=== PATIENT | female | born 1950 | race African-American/Black ===

== ENCOUNTER 2017-11-25 16:03 | Emergency (ER) | payer MEDICARE ==
--- OUTSIDE RECORDS SUMMARY | 2017-11-25 16:05 | XMS REPORT ---
:1950 [facility] Address [address] [place] [address] [address] Care Team Providers Name Role Phone NAS PASCUAL Primary Care Provider Unavailable Problems This patient has no known problems. Allergies, Adverse Reactions, Alerts This patient has no known allergies or adverse reactions. Medications This patient has no known medications. Encounters Start End Encounter Admission Attending Care Care Encounter Date/Time Date/Time Type Type Clinicians Facility Department ID 2017-04-20 2017-04-20 Outpatient C [facility] MED [id number] 07:21:00 07:21:00
--- NOTE | 2017-11-25 17:41 | RAD REPORT ---
EXAM DESCRIPTION: RAD - Hand Right 3 View - 11/25/2017 5:35 pm CLINICAL HISTORY: Trauma, hand pain COMPARISON: None. FINDINGS: Oblique fracture involves the shaft of the fourth metacarpal. No dislocation is seen.
[2017-11-25] MEDS ORDERED: IBUPROFEN 400 MG TAB ONE (17:50)
[2017-11-25] MEDS ORDERED: HYDROCODONE/APAP 5/325 MG TAB ONE (17:50)
--- NOTE | 2017-11-25 17:50 | ER ---
Nurse's Notes [facility] Name: Tuyet Maldonado Age: 67 yrs Sex: Female : 1950 Arrival Date: 11/25/2017 Time: 16:06 Bed 18 Private MD: Out, [facility] Diagnosis: Closed oblique, 4th metacarpal fracture Presentation: 11/25 16:25 Presenting complaint: Patient states: i hurt my R hand this morning about 9 am; i hj caught my husbands body while we were in the truck accidentally; it looks it swollen now;. Transition of care: patient was not received from another setting of care. Onset of symptoms was November 25, 2017. Care prior to arrival: None. 16:25 Method Of Arrival: Ambulatory 16:25 Acuity: ADOLFO 4 hj Triage Assessment: 16:32 General: Appears in no apparent distress. uncomfortable, Behavior is calm, cooperative, hj appropriate for age. Pain: Complains of pain in right hand. Musculoskeletal: Swelling. Historical: - Allergies: 16:32 Iodine; hj - Home Meds: 16:32 furosemide 20 mg Oral tab 1 tab once daily [Active]; folic acid 1 mg Oral tab 1 tab hj once daily [Active]; levothyroxine 125 mcg tab 1 tab once daily [Active]; potassium chloride 20 mEq Oral TbTQ 1 tab once daily [Active]; Plavix 75 mg Oral tab 1 tab once daily [Active]; omeprazole 40 mg Oral cpDR 1 cap once daily [Active]; pravastatin 40 mg oral tab 1 tab once daily [Active]; losartan 100 mg oral tab 1 tab once daily [Active]; isosorbide dinitrate 30 mg Oral tab 1 tab daily [Active]; oxybutynin chloride 5 mg Oral tr24 1 tab once daily [Active]; prednisone 5 mg Oral tab once daily [Active]; methotrexate sodium 2.5 mg Oral tab 1 tab weekly [Active]; Vitamin D Oral [Active]; hydrocodone-acetaminophen Oral [Active]; clonazepam 0.5 mg Oral tab 1 tab 3 times per day [Active]; - PMHx: 16:32 Lupus; heart disease; hj - PSHx: 16:32 Cholecystectomy; ear; ankle; Hysterectomy; hj - Immunization history:: Adult Immunizations up to date. Screenin:20 Abuse screen: Denies threats or abuse. Denies injuries from another. Nutritional aj1 screening: No deficits noted. Tuberculosis screening: No symptoms or risk factors identified. Fall Risk None identified. Assessment: 17:20 General: Appears in no apparent distress. uncomfortable, Behavior is calm, cooperative, aj1 appropriate for age. Pain: Complains of pain in right hand Pain does not radiate. Pain currently is 8 out of 10 on a pain scale. Neuro: Level of Consciousness is awake, alert, obeys commands, Oriented to person, place, time, situation, Speech is normal, Facial symmetry appears normal. Cardiovascular: Patient's skin is warm and dry. Respiratory: Airway is patent Respiratory effort is even, unlabored, Respiratory pattern is regular, symmetrical. GI: No signs and/or symptoms were reported involving the gastrointestinal system. : No signs and/or symptoms were reported regarding the genitourinary system. EENT: No signs and/or symptoms were reported regarding the EENT system. Derm: No signs and/or symptoms reported regarding the dermatologic system. Skin is pink, warm \T\ dry. normal. Musculoskeletal: Capillary refill < 3 seconds, in right fingers. Range of motion: limited in right hand Swelling present in right hand. 18:29 Reassessment: Patient appears in no apparent distress at this time. No changes from aj1 previously documented assessment. Patient and/or family updated on plan of care and expected duration. Pain level reassessed. Patient is alert, oriented x 3, equal unlabored respirations, skin warm/dry/pink. 19:11 Reassessment: PT D/C HOME AMBULATORY WITH FAMILY, DX WITH 4TH METACARPAL FX, TO F/U bp WITH ORTHO-HAND. Vital Signs: 16:33 BP 117 / 73; Pulse 82; Resp 18; Temp 98.4(TE); Pulse Ox 98% on R/A; Weight 109.77 kg; hj Height 5 ft. 1 in. (154.94 cm); Pain 8/10; 18:39 BP 121 / 73; Pulse 65; Resp 18; Pulse Ox 100% on R/A; aj1 16:33 Body Mass Index 45.73 (109.77 kg, 154.94 cm) ED Course: 16:06 Patient arrived in ED. mr 16:07 Out, [facility] is Private Physician. mr 16:21 [facility] snw 16:21 Jhony Pan MD is Attending Physician. snw 16:27 Triage completed. hj 16:33 Arm band placed on left wrist. hj 17:16 Nguyen Carvajal RN is Primary Nurse. aj1 17:20 Patient has correct armband on for positive identification. Placed in gown. Bed in low aj1 position. Call light in reach. 17:20 No provider procedures requiring assistance completed. aj1 17:33 X-ray completed. Portable x-ray completed in exam room. Patient tolerated procedure la2 well. 17:47 David Guajardo MD is Referral Physician. snw 18:29 Patient did not have IV access during this emergency room visit. aj1 19:08 Orthoglass splint: Ulnar gutter/Boxer splint applied on right forearm. Sling applied to mh5 right arm. hand / forearm (right ). 19:10 Orthoglass splint: Ulnar gutter/Boxer splint applied on right forearm. bp Administered Medications: 17:38 Not Given (Patient Refused): [place] 5 mg-325 mg 1 tabs PO once jl7 17:38 Not Given (Patient Refused): Motrin 400 mg PO once jl7 17:38 Drug: Tylenol 1000 mg Route: PO; jl7 18:40 Follow up: Response: No adverse reaction aj1 Outcome: 17:50 Discharge ordered by . snw 19:12 Patient left the ED. bp Signatures: Nguyen Carvajal, RN RN aj1 Candie Turner FNP-C WHEEL ALIGNER-Csnw Juana Holt Henry, RN RN Juana Dawson [facility] Eda Boothe RN RN 7 Yesica Espinoza [facility] Tamir Lambert RN RN bp Corrections: (The following items were deleted from the chart) 16:35 16:33 Pulse 82bpm; Resp 18bpm; Pulse Ox 100% RA; Temp 98.4F Temporal; 109.77 kg; Height hj 5 ft. 1 in.; BMI: 45.7; Pain 8/10; hj
--- NOTE | 2017-11-25 17:50 | EDPHYS ---
Physician Documentation [facility] Name: Tuyet Maldonado Age: 67 yrs Sex: Female : 1950 Arrival Date: 11/25/2017 Time: 16:06 Bed 18 Private MD: Out, [facility] ED Physician Jhony Pan HPI: 11/25 17:06 This 67 yrs old Black Female presents to ER via Ambulatory with complaints of Hand snw Injury. 17:06 The patient or guardian reports a contusion, decreased range of motion, injury, pain, snw swelling, tenderness. The complaints affect the right hand diffusely. Context: The problem was sustained outdoors, resulted from a direct blow, by a heavy object. Onset: The symptoms/episode began/occurred suddenly. Modifying factors: The symptoms are alleviated by holding still, the symptoms are aggravated by movement, dependent position. Severity of symptoms: At their worst the symptoms were moderate. The patient has not experienced similar symptoms in the past. The patient has not recently seen a physician. pt was behind her when he lost his balance, attempted to stop his fall and he landed against her closed fist.. Historical: - Allergies: 16:32 Iodine; hj - Home Meds: 16:32 furosemide 20 mg Oral tab 1 tab once daily [Active]; folic acid 1 mg Oral tab 1 tab hj once daily [Active]; levothyroxine 125 mcg tab 1 tab once daily [Active]; potassium chloride 20 mEq Oral TbTQ 1 tab once daily [Active]; Plavix 75 mg Oral tab 1 tab once daily [Active]; omeprazole 40 mg Oral cpDR 1 cap once daily [Active]; pravastatin 40 mg oral tab 1 tab once daily [Active]; losartan 100 mg oral tab 1 tab once daily [Active]; isosorbide dinitrate 30 mg Oral tab 1 tab daily [Active]; oxybutynin chloride 5 mg Oral tr24 1 tab once daily [Active]; prednisone 5 mg Oral tab once daily [Active]; methotrexate sodium 2.5 mg Oral tab 1 tab weekly [Active]; Vitamin D Oral [Active]; hydrocodone-acetaminophen Oral [Active]; clonazepam 0.5 mg Oral tab 1 tab 3 times per day [Active]; - PMHx: 16:32 Lupus; heart disease; hj - PSHx: 16:32 Cholecystectomy; ear; ankle; Hysterectomy; hj - Immunization history:: Adult Immunizations up to date. ROS: 17:06 Constitutional: Negative for fever, chills, and weight loss, Eyes: Negative for injury, snw pain, redness, and discharge, ENT: Negative for injury, pain, and discharge, Neck: Negative for injury, pain, and swelling, Cardiovascular: Negative for chest pain, palpitations, and edema, Respiratory: Negative for shortness of breath, cough, wheezing, and pleuritic chest pain, Abdomen/GI: Negative for abdominal pain, nausea, vomiting, diarrhea, and constipation, Back: Negative for injury and pain, : Negative for injury, bleeding, discharge, and swelling, Skin: Negative for injury, rash, and discoloration, Neuro: Negative for headache, weakness, numbness, tingling, and seizure, Psych: Negative for depression, anxiety, suicide ideation, homicidal ideation, and hallucinations. 17:06 MS/extremity: Positive for injury or acute deformity, decreased range of motion, pain, of the dorsum of right hand. Exam: 17:02 Constitutional: This is a well developed, well nourished patient who is awake, alert, snw and in no acute distress. Head/Face: Normocephalic, atraumatic. Eyes: Pupils equal round and reactive to light, extra-ocular motions intact. Lids and lashes normal. Conjunctiva and sclera are non-icteric and not injected. Cornea within normal limits. Periorbital areas with no swelling, redness, or edema. ENT: Nares patent. No nasal discharge, no septal abnormalities noted. Tympanic membranes are normal and external auditory canals are clear. Oropharynx with no redness, swelling, or masses, exudates, or evidence of obstruction, uvula midline. Mucous membranes moist. Neck: Trachea midline, no thyromegaly or masses palpated, and no cervical lymphadenopathy. Supple, full range of motion without nuchal rigidity, or vertebral point tenderness. No Meningismus. Chest/axilla: Normal chest wall appearance and motion. Nontender with no deformity. No lesions are appreciated. Cardiovascular: Regular rate and rhythm with a normal S1 and S2. No gallops, murmurs, or rubs. Normal PMI, no JVD. No pulse deficits. Respiratory: Lungs have equal breath sounds bilaterally, clear to auscultation and percussion. No rales, rhonchi or wheezes noted. No increased work of breathing, no retractions or nasal flaring. Abdomen/GI: Soft, non-tender, with normal bowel sounds. No distension or tympany. No guarding or rebound. No evidence of tenderness throughout. Back: No spinal tenderness. No costovertebral tenderness. Full range of motion. Skin: Warm, dry with normal turgor. Normal color with no rashes, no lesions, and no evidence of cellulitis. Neuro: Awake and alert, GCS 15, oriented to person, place, time, and situation. Cranial nerves II-XII grossly intact. Motor strength 5/5 in all extremities. Sensory grossly intact. Cerebellar exam normal. Normal gait. Psych: Awake, alert, with orientation to person, place and time. Behavior, mood, and affect are within normal limits. 17:02 Musculoskeletal/extremity: ROM: limited active range of motion due to pain, limited passive range of motion due to pain, Circulation is intact in all extremities. Sensation intact. Compartment Syndrome exam of affected extremity: is normal. Right 4th metacarpal with depressed appearance with hematoma overlying area. Vital Signs: 16:33 BP 117 / 73; Pulse 82; Resp 18; Temp 98.4(TE); Pulse Ox 98% on R/A; Weight 109.77 kg; hj Height 5 ft. 1 in. (154.94 cm); Pain 8/10; 18:39 BP 121 / 73; Pulse 65; Resp 18; Pulse Ox 100% on R/A; aj1 16:33 Body Mass Index 45.73 (109.77 kg, 154.94 cm) MDM: 16:22 Patient medically screened. snw 17:54 Data reviewed: vital signs, nurses notes. Data interpreted: Pulse oximetry: on room air snw is 98 %. Interpretation: normal. Counseling: I had a detailed discussion with the patient and/or guardian regarding: the historical points, exam findings, and any diagnostic results supporting the discharge/admit diagnosis, radiology results, the need for outpatient follow up, to return to the emergency department if symptoms worsen or persist or if there are any questions or concerns that arise at home. Special discussion: Based on the history and exam findings, there is no indication for further emergent testing or inpatient evaluation. I discussed with the patient/guardian the need to see the orthopedic surgeon for further evaluation of the symptoms. 11/25 16:34 Order name: Hand Right 3 View XRAY hj 11/25 17:41 Order name: RAD; Complete Time: 17:46 EDMS 11/25 17:47 Order name: Ulnar Gutter splint; Complete Time: 19:10 snw Administered Medications: 17:38 Not Given (Patient Refused): [place] 5 mg-325 mg 1 tabs PO once jl7 17:38 Not Given (Patient Refused): Motrin 400 mg PO once jl7 17:38 Drug: Tylenol 1000 mg Route: PO; jl7 18:40 Follow up: Response: No adverse reaction aj1 Disposition: 11/26 10:47 Co-signature as Attending Physician, Jhony Pan MD I agree with the assessment and joshua plan of care. Disposition: 11/25/17 17:50 Discharged to Home. Impression: Closed oblique, 4th metacarpal fracture. - Condition is Stable. - Discharge Instructions: Elastic Bandage and RICE, Boxer's Fracture, Cast or Splint Care. - Prescriptions for Tylenol- Codeine #3 300-30 mg Oral Tablet - take 2 tablets by ORAL route every 6 hours As needed; 20 tablet. - Medication Reconciliation Form, Thank You Letter, Antibiotic Education, Prescription Opioid Use form. - Follow up: Private Physician; When: Tomorrow; Reason: Recheck today's complaints, Continuance of care, Re-evaluation by your physician. Follow up: Emergency Department; When: As needed; Reason: Worsening of condition. Follow up: David Guajardo MD; When: 2 - 3 days; Reason: Recheck today's complaints, Continuance of care. Signatures: Dispatcher [employer] EDNguyen Alexis, RN RN aj1 Jhony Pan MD MD cha Therrien, Shelly, COMMUNICATIONS PROFESSOR-C COMMUNICATIONS PROFESSOR-Csnw Juan Muller, RN BOUBACAR hj Eda Boothe RN RN jl7 Tamir Lambert RN RN bp
[2017-11-25] MEDS ORDERED: ACETAMINOPHEN 500 MG TAB ONE (17:55)
[2017-11-25 20:01] VITALS: TEMP 98.4
[2017-11-25 20:03] VITALS: BP 121/73; O2SAT 100
== END 2017-11-25 19:12 | disposition home or self-care (01) ==
LOC: ER 16:03
PROC: 2W3CX1Z Immobilization of Right Lower Arm using Splint (ICD-10-PCS; principal; 2017-11-25)
DX: S62.304A Unspecified fracture of fourth metacarpal bone, right hand, initial encounter for closed fracture (principal); W50.0XXA Accidental hit or strike by another person, initial encounter; Y93.89 Activity, other specified; Y92.89 Other specified places as the place of occurrence of the external cause; Z91.048 Other nonmedicinal substance allergy status; Z79.01 Long term (current) use of anticoagulants; I51.9 Heart disease, unspecified
CPT/HCPCS: 99283

== ENCOUNTER 2019-04-30 23:41 | Emergency (ER) | payer MEDICARE ==
--- OUTSIDE RECORDS SUMMARY | 2019-04-30 23:44 | XMS REPORT ---
:1950 [facility] Address [address] [place] [address] [address] Care Team Providers Name Role Phone NAS PASCUAL Primary Care Provider Unavailable Problems This patient has no known problems. Allergies, Adverse Reactions, Alerts This patient has no known allergies or adverse reactions. Medications This patient has no known medications. Encounters Start End Encounter Admission Attending Care Care Encounter Date/Time Date/Time Type Type Clinicians Facility Department ID 2017-04-20 2017-04-20 Outpatient C [facility] MED [id number] 07:21:00 07:21:00 2017-04-20 2017-04-20 Outpatient [facility] [id number] 07:13:00 07:13:00
[2019-05-01] MEDS ORDERED: ONDANSETRON 4 MG/2 ML VIAL ONE (00:34)
[2019-05-01] MEDS ORDERED: MORPHINE 4 MG/ML SYR ONE (00:34)
[2019-05-01 00:35] LABS: Hematocrit 30.8 % (36.0-45.0); Lymphocytes % 45.5 % (15.3-44.8); MPV 9.2 fL (7.6-11.3); RBC Red Blood Cell Count 3.38 M/uL (3.86-4.86)
[2019-05-01 00:49] LABS: Potassium 3.7 mmol/L (3.5-5.1)
[2019-05-01] MEDS ORDERED: CODEINE 30MG/APAP 300MG TAB ONE (00:51)
--- NOTE | 2019-05-01 02:06 | ER ---
Nurse's Notes [facility] Name: Tuyet Maldonado Age: 68 yrs Sex: Female : 1950 Arrival Date: 04/30/2019 Time: 23:47 Bed 15 Private MD: Diagnosis: Chronic pain left lower leg and right axilla Presentation: 04/30 23:58 Presenting complaint: Patient states: Reports pain in left foot since last August, ea states "the pain is just getting worse and worse and going up my left leg". Transition of care: patient was not received from another setting of care. Onset of symptoms was April 30, 2019. Risk Assessment: Do you want to hurt yourself or someone else? Patient reports no desire to harm self or others. Initial Sepsis Screen: Does the patient meet any 2 criteria? No. Patient's initial sepsis screen is negative. Does the patient have a suspected source of infection? No. Patient's initial sepsis screen is negative. Care prior to arrival: None. 23:58 Method Of Arrival: Wheelchair ea 23:58 Acuity: ADOLFO 3 ea Triage Assessment: 05/01 00:00 General: Appears in no apparent distress. Behavior is calm, cooperative, appropriate ea for age. Pain: Complains of pain in left leg. Historical: - Allergies: 00:01 Iodine; ea - PMHx: 00:01 Lupus; heart disease; ea - PSHx: 00:01 Cholecystectomy; ear; Hysterectomy; ankle; ea - Immunization history:: Adult Immunizations up to date. - Social history:: Smoking status: Patient/guardian denies using tobacco. - Ebola Screening: : No symptoms or risks identified at this time. Screenin/21 23:59 Abuse screen: Denies threats or abuse. Nutritional screening: No deficits noted. ea Tuberculosis screening: No symptoms or risk factors identified. Fall Risk None identified. Assessment: 05/01 00:00 General: Appears in no apparent distress. uncomfortable, Behavior is calm, cooperative, rr5 appropriate for age. 00:00 Pain: Complains of pain in left leg and right armpit Pain does not radiate. Pain rr5 currently is 8 out of 10 on a pain scale. Quality of pain is described as aching, Pain began gradually, Is intermittent. Neuro: Level of Consciousness is awake, alert, obeys commands, Oriented to person, place, time, situation, Appropriate for age. Cardiovascular: Capillary refill < 3 seconds Patient's skin is warm and dry. Respiratory: Airway is patent Respiratory effort is even, unlabored, Respiratory pattern is regular, symmetrical. GI: No signs and/or symptoms were reported involving the gastrointestinal system. : No signs and/or symptoms were reported regarding the genitourinary system. EENT: No signs and/or symptoms were reported regarding the EENT system. Derm: Skin is intact, Skin temperature is warm. Musculoskeletal: Circulation, motion, and sensation intact. Capillary refill < 3 seconds, Swelling present in left leg Reports pain in left leg and right armpit. 01:15 Reassessment: Patient appears in no apparent distress at this time. Patient is alert, rr5 oriented x 3, equal unlabored respirations, skin warm/dry/pink. chatting with her artist relationship manager. no complaints made. 02:20 Reassessment: Patient appears in no apparent distress at this time. Patient is alert, rr5 oriented x 3, equal unlabored respirations, skin warm/dry/pink. discharge instruction given and explained without complaints made. Patient states feeling better. Patient states symptoms have improved. Vital Signs: 04/30 23:58 BP 144 / 71; Pulse 84; Resp 18; Temp 97.5; Pulse Ox 100% ; Weight 109.77 kg; Height 5 ea ft. 1 in. (154.94 cm); Pain 7/10; 05/01 01:00 BP 131 / 70; Pulse 80; Resp 17; Pulse Ox 99% on R/A; rr5 02:15 BP 123 / 84; Pulse 80; Resp 17; Pulse Ox 99% ; Pain 6/10; rr5 04/30 23:58 Body Mass Index 45.73 (109.77 kg, 154.94 cm) ea ED Course: 04/30 23:47 Patient arrived in ED. ag3 23:53 Iggy Deras RN is Primary Nurse. rr5 23:58 Triage completed. ea 23:59 Patient has correct armband on for positive identification. Bed in low position. Call ea light in reach. 05/01 00:00 Patient placed in an exam room, on a stretcher, on pulse oximetry. ea 00:04 Benji Mendoza MD is Attending Physician. pkl 00:25 Inserted saline lock: 20 gauge in right antecubital area, using aseptic technique. rr5 Blood collected. 01:58 X-ray completed. Portable x-ray completed in exam room. Patient tolerated procedure kw well. 02:08 Tib Fib Left XRAY In Process Unspecified. EDMS 02:20 No provider procedures requiring assistance completed. IV discontinued, intact, rr5 bleeding controlled, No redness/swelling at site. Pressure dressing applied. 02:30 Primary Nurse role handed off by Iggy Deras, RN khushbu Administered Medications: 01:00 Drug: Tylenol #3 (300 mg-30 mg) 1 tablet {Note: rass 0.} Route: PO; rr5 02:00 Follow up: Response: No adverse reaction; RASS: Alert and Calm (0) rr5 01:27 Not Given (Other Intervention Used; patient refused ): morphine 4 mg IVP once; RASS on rr5 ADMIN: Combtv4, Very Agttd3, Agttd2, Rstlss1, AlertClm0, Drwsy-1, Lt Sdtn-2, Mod Sdtn-3, Dp Sdtn-4, UnArsble-5 01:27 Not Given (Other Intervention Used): Zofran 4 mg IVP once; over 2 minutes rr5 Outcome: 02:05 Discharge ordered by . pkjean paul 02:20 Discharged to home via wheelchair, with family. rr5 02:20 Condition: stable 02:20 Discharge instructions given to patient, family, Instructed on discharge instructions, follow up and referral plans. medication usage, Demonstrated understanding of instructions, follow-up care, medications, Prescriptions given X 1. 02:21 Patient left the ED. rr5 02:33 Patient left the ED. rr5 Signatures: Dispatcher [employer] EDMS Benji Mendoza MD MD pkl Chretien, Felicia RN Crissy Grijalva Elena, RN RN ea Gomez, Alice [facility] Iggy Deras, BOUBACAR RN rr5
--- NOTE | 2019-05-01 02:07 | EDPHYS ---
Physician Documentation [facility] Name: Tuyet Maldonado Age: 68 yrs Sex: Female : 1950 Arrival Date: 04/30/2019 Time: 23:47 Bed 15 Private MD: ED Physician Benji Mendoza HPI: 05/01 01:07 This 68 yrs old Black Female presents to ER via Wheelchair with complaints of Leg Pain. pkl 01:07 The patient presents with pain, that is acute. The complaints affect the left lower pkl leg. Onset: The symptoms/episode began/occurred 8 month(s) ago. Historical: - Allergies: 00:01 Iodine; ea - PMHx: 00:01 Lupus; heart disease; ea - PSHx: 00:01 Cholecystectomy; ear; Hysterectomy; ankle; ea - Immunization history:: Adult Immunizations up to date. - Social history:: Smoking status: Patient/guardian denies using tobacco. - Ebola Screening: : No symptoms or risks identified at this time. ROS: 01:07 Eyes: Negative for injury, pain, redness, and discharge, ENT: Negative for injury, pkl pain, and discharge, Neck: Negative for injury, pain, and swelling, Cardiovascular: Negative for chest pain, palpitations, and edema, Respiratory: Negative for shortness of breath, cough, wheezing, and pleuritic chest pain, Abdomen/GI: Negative for abdominal pain, nausea, vomiting, diarrhea, and constipation, Back: Negative for injury and pain, : Negative for injury, bleeding, discharge, and swelling, Neuro: Negative for headache, weakness, numbness, tingling, and seizure. 01:07 MS/extremity: Positive for erythema, pain, tenderness, warmth, of the left lower leg. 01:07 Skin: Positive for erythema, of the left lowerr leg. 01:07 Neuro: Negative for altered mental status. Exam: 01:07 Head/Face: Normocephalic, atraumatic. Eyes: Pupils equal round and reactive to light, pkl extra-ocular motions intact. Lids and lashes normal. Conjunctiva and sclera are non-icteric and not injected. Cornea within normal limits. Periorbital areas with no swelling, redness, or edema. ENT: Nares patent. No nasal discharge, no septal abnormalities noted. Tympanic membranes are normal and external auditory canals are clear. Oropharynx with no redness, swelling, or masses, exudates, or evidence of obstruction, uvula midline. Mucous membranes moist. Neck: Trachea midline, no thyromegaly or masses palpated, and no cervical lymphadenopathy. Supple, full range of motion without nuchal rigidity, or vertebral point tenderness. No Meningismus. Chest/axilla: Normal chest wall appearance and motion. Nontender with no deformity. No lesions are appreciated. Cardiovascular: Regular rate and rhythm with a normal S1 and S2. No gallops, murmurs, or rubs. Normal PMI, no JVD. No pulse deficits. Respiratory: Lungs have equal breath sounds bilaterally, clear to auscultation and percussion. No rales, rhonchi or wheezes noted. No increased work of breathing, no retractions or nasal flaring. Abdomen/GI: Soft, non-tender, with normal bowel sounds. No distension or tympany. No guarding or rebound. No evidence of tenderness throughout. Back: No spinal tenderness. No costovertebral tenderness. Full range of motion. Neuro: Awake and alert, GCS 15, oriented to person, place, time, and situation. Cranial nerves II-XII grossly intact. Motor strength 5/5 in all extremities. Sensory grossly intact. Cerebellar exam normal. Normal gait. 01:07 Musculoskeletal/extremity: Extremities: grossly normal except: noted in the left lower leg: erythema, pain, tenderness. Vital Signs: 04/30 23:58 BP 144 / 71; Pulse 84; Resp 18; Temp 97.5; Pulse Ox 100% ; Weight 109.77 kg; Height 5 ea ft. 1 in. (154.94 cm); Pain 7/10; 05/01 01:00 BP 131 / 70; Pulse 80; Resp 17; Pulse Ox 99% on R/A; rr5 02:15 BP 123 / 84; Pulse 80; Resp 17; Pulse Ox 99% ; Pain 6/10; rr5 04/30 23:58 Body Mass Index 45.73 (109.77 kg, 154.94 cm) ea MDM: 00:04 Patient medically screened. pkl 01:56 Data reviewed: vital signs, nurses notes, lab test result(s), radiologic studies, plain pkl films. ED course: Patient seen by Dr. Mcnair ( Hospitalist ). Patient does not meet criteria for admission. Discussed lab. and imaging studies with patient. Patient said she has appt. with her PCP in the morning. Advised patient to keep appt. Patient understood instruction. 05/01 00:15 Order name: CBC with Diff pkl 05/01 00:15 Order name: Chem 7 pkl 05/01 00:15 Order name: D-Dimer pkl 05/01 00:15 Order name: Sed Rate pkl 05/01 00:48 Order name: CBC with Automated Diff EDMS 05/01 00:49 Order name: D-Dimer EDMS 05/01 00:16 Order name: Saline Lock; Complete Time: 00:24 pkl 05/01 00:50 Order name: Basic Metabolic Panel EDMS 05/01 01:04 Order name: Sedimentation Rate, [place] EDMS 05/01 01:06 Order name: Tib Fib Left XRAY pkl Administered Medications: 01:00 Drug: Tylenol #3 (300 mg-30 mg) 1 tablet {Note: rass 0.} Route: PO; rr5 02:00 Follow up: Response: No adverse reaction; RASS: Alert and Calm (0) rr5 01:27 Not Given (Other Intervention Used; patient refused ): morphine 4 mg IVP once; RASS on rr5 ADMIN: Combtv4, Very Agttd3, Agttd2, Rstlss1, AlertClm0, Drwsy-1, Lt Sdtn-2, Mod Sdtn-3, Dp Sdtn-4, UnArsble-5 01:27 Not Given (Other Intervention Used): Zofran 4 mg IVP once; over 2 minutes rr5 Disposition: 05/01/19 02:05 Discharged to Home. Impression: Chronic pain left lower leg and right axilla. - Condition is Stable. - Prescriptions for Tylenol- Codeine #3 300-30 mg Oral Tablet - take 1 tablet by ORAL route every 8 hours As needed; 20 tablet. - Medication Reconciliation Form, Thank You Letter, Antibiotic Education, Prescription Opioid Use form. - Follow up: Private Physician; When: Tomorrow; Reason: Re-evaluation by your physician. - Problem is new. - Symptoms have improved. Signatures: Dispatcher [facility] Benji Mendoza MD MD pkl Brady, Jennifer, RN RN ea Deras, Iggy, RN RN rr5 Corrections: (The following items were deleted from the chart) 02:21 02:05 05/01/2019 02:05 Discharged to Home. Impression: Chronic pain right lower leg and rr5 right axilla. Possible lymphadenitis. Condition is Stable. Forms are Medication Reconciliation Form, Thank You Letter, Antibiotic Education, Prescription Opioid Use. Follow up: Private Physician; When: Tomorrow; Reason: Re-evaluation by your physician. Problem is new. Symptoms have improved. pkl 02:33 02:21 05/01/2019 02:05 Discharged to Home. Impression: Chronic pain right lower leg and pkl right axilla. Possible lymphadenitis. Condition is Stable. Prescriptions for Tylenol-Codeine #3 300-30 mg Oral Tablet - take 1 tablet by ORAL route every 8 hours As needed; 20 tablet. and Forms are Medication Reconciliation Form, Thank You Letter, Antibiotic Education, Prescription Opioid Use. Follow up: Private Physician; When: Tomorrow; Reason: Re-evaluation by your physician. Problem is new. Symptoms have improved. rr5 02:33 02:33 05/01/2019 02:05 Discharged to Home. Impression: Chronic pain left lower leg and rr5 right axilla. Condition is Stable. Prescriptions for Tylenol-Codeine #3 300-30 mg Oral Tablet - take 1 tablet by ORAL route every 8 hours As needed; 20 tablet. and Forms are Medication Reconciliation Form, Thank You Letter, Antibiotic Education, Prescription Opioid Use. Follow up: Private Physician; When: Tomorrow; Reason: Re-evaluation by your physician. Problem is new. Symptoms have improved. pkl
--- NOTE | 2019-05-01 02:34 | P.CNS ---
Date of Consult: 05/01/19 Reason for Consult: Left leg pain Requesting Physician: Benji Mendoza Chief Complaint: Left leg pain x 8 months History of Present Illness: 68-year-old woman with a history of rheumatoid arthritis on monoclonal antibody therapy presented to the ED with a complaint of left lower extremity pain, swelling and redness which has been present for 8 months. She also has similar pain in the right axilla area of the same duration. Patient reports taking several antibiotics without improvement. She recently completed 4 different types of antibiotics a couple of months ago. She denies any fever or chills. She reports completing a venous Doppler of the left lower extremity about 1 month ago but does not know the result of the test. Here in the ED, patient has no leukocytosis. She is afebrile. Allergies iodine [Iodine] Allergy (Severe, Verified 03/14/12 17:31) Shortness of breath Home Medications: Albuterol 2 puff IH Q4HP PRN 03/15/12 Estrogens,Conjugated [Premarin] 1.25 mg PO DAILY 03/15/12 Fluticasone/Salmeterol [Advair 100/50 Diskus*] 1 puff IH BID 03/15/12 Hydrochlorothiazide 50 mg PO DAILY 03/15/12 Tolterodine Tartrate [Detrol] 1 mg PO BID 03/15/12 Unitroid 100 mcg PO DAILY 03/15/12 Hydrocodone Bit/Acetaminophen [Vicodin Es 7.5-750 mg Tablet] 1 each PO Q4HP PRN #40 tablet 03/16/12 - Past Medical/Surgical History Diabetic: No -: Rheumatoid arthritis - Social History Smoking Status: Never smoker Alcohol use: Yes CD- Drugs: No Caffeine use: Yes Review of Systems Other: General: No fever, no malaise, no unintentional weight loss. Eyes: No eye discharge, Respiratory: No cough, no shortness of breath. CVS: No chest pain, no palpitation, no lightheadedness. GI: No abdominal pain, no nausea no vomit, no constipation, no diarrhea. Genitourinary: No dysuria, no urinary frequency, no incontinence, no hematuria. Musculoskeletal: No gait instability. Neurology: No headache, no asymmetric, weakness, no problem with swallowing. Except as documented, all other systems reviewed and negative. Physical Examination General: Alert, In no apparent distress, Oriented x3 HEENT: Atraumatic, Normocephalic, PERRLA, Mucous membr. moist/pink, EOMI Neck: Supple, 2+ carotid pulse no bruit, JVD not distended Respiratory: Clear to auscultation bilaterally, Normal air movement Cardiovascular: Normal pulses, Regular rate/rhythm, Normal S1 S2, No murmurs Capillary refill: <2 Seconds Gastrointestinal: Normal bowel sounds, Soft and benign, Non-distended, No tenderness Musculoskeletal: Swelling (Left lower extremity from the foot to the distal 3rd of the leg.), Other (Left lower extremity with erythema and tenderness from the foot to the distal 3rd of the leg) Integumentary: Erythema (Of the lower extremity.), Other (Streak of tenderness in the right axilla.) Lymphatics: No axilla or inguinal lymphadenopathy Laboratory Data (last 24 hrs) 05/01/19 00:25: Sodium 143, Potassium 3.7, BUN 16, Creatinine 1.01, Glucose 164 H 05/01/19 00:25: WBC 4.5, Hgb 10.0 L, Hct 30.8 L, Plt Count 218 - Problems (1) Chronic leg pain Status: Acute Qualifiers: Laterality: left Qualified Code(s): M79.605 - Pain in left leg; G89.29 - Other chronic pain Conclusions/Impression: Chronic leg pain: Could be secondary to lymphedema versus lymphadenitis. Benefit from hospitalization for treatment with IV antibiotics is very marginal if any. Patient has already completed several bouts of antibiotics without improvement. Patient denies any changes over the past 8 months. I would recommend follow up with her primary care physician as outpatient for further evaluation. Time Spent Managing Pts care (In Minutes): 45
[2019-05-01 02:40] VITALS: TEMP 97.5
[2019-05-01 02:41] VITALS: O2SAT 99
[2019-05-01 02:43] VITALS: BP 123/84
--- NOTE | 2019-05-01 10:19 | RAD REPORT ---
EXAM DESCRIPTION: RAD - Tib Fib Left - 05/01/2019 2:01 am CLINICAL HISTORY: Nontraumatic left leg pain COMPARISON: None. FINDINGS: No fracture is identified. There is no dislocation or periosteal reaction noted. No acute or destructive bone process seen. Patient has degenerative change in the knee joint. Bone screws in p lace in the fibula at the ankle joint from remote fracture repair. There is a fragment of a bone scre w remaining from prior medial malleolus fracture repair. Degenerative change at the ankle joint is mi nimal. No foreign body in the soft tissues. Mild edema changes are evident in the subcutaneous fatty tissues . Baseline for the patient is unknown. IMPRESSION: Knee joint degenerative change and ankle joint postsurgical change. No acute bone findin g. Edema in the subcutaneous fat of the leg with no baseline for comparison. No air or foreign body in t he soft tissues.
== END 2019-05-01 02:33 | disposition home or self-care (01) ==
LOC: ER 23:41
DX: G89.29 Other chronic pain (principal); I51.9 Heart disease, unspecified; Z91.048 Other nonmedicinal substance allergy status
CPT/HCPCS: 36415; 80048; 85025; 85379; 85652; 99284; J2405

== ENCOUNTER 2023-05-02 06:08 | Day surgery (SDC) | payer MEDICARE ==
[2023-04-30 15:45] LABS: Absolute Lymphocytes (CBC) 2.6 K/uL (0.7-4.9); Hematocrit 29.4 % (36.0-45.0); Lymphocytes % 39.4 % (15.3-44.8); MCV 79.4 fL (80-100); MPV 8.8 fL (7.6-11.3); Platelets 279 thou/uL (152-406)
--- NOTE | 2023-04-30 15:50 | RAD REPORT ---
EXAM DESCRIPTION: Sukhdeep Busch (2 Views)04/30/2023 3:43 pm CLINICAL HISTORY: Preop. Hypertension COMPARISON: 2019 FINDINGS: The lungs appear clear of acute infiltrate. The heart is normal size IMPRESSION: No acute abnormalities displayed
[2023-04-30 15:59] LABS: Potassium 3.9 mEq/L (3.5-5.1)
--- NOTE | 2023-05-01 15:52 | EKG ---
Test Date: 2023-04-30 Test Time: 15:20:27 Floral Designer: SELINA MEASUREMENT RESULTS: Intervals: Rate: 83 OR: 166 QRSD: 80 QT: 374 QTc: 439 [place]: P: 73 OR: 166 QRS: 34 T: 38 INTERPRETIVE STATEMENTS: Normal sinus rhythm Normal ECG Compared to ECG 03/14/2012 09:58:52 No significant changes Electronically Signed On 05-01-23 15:51:35 CDT by Boo Lind
[2023-05-02] MEDS ORDERED: Ringers Lactate 1,000 ML IV ONE (06:33)
[2023-05-02] MEDS: CEFAZOLIN SODIUM 1 GM/VIAL ONE ×2 (07:11→08:12)
[2023-05-02] MEDS ORDERED: FENTANYL CITR 100 MCG/2 ML ONE (07:17)
[2023-05-02] MEDS ORDERED: KETOROLAC 30 MG/ML INJ ONE (07:18)
[2023-05-02] MEDS ORDERED: LIDOCAINE 2% MPF 5 ML VIAL ONE (07:18)
[2023-05-02] MEDS ORDERED: propofoL 200 MG/20 ML VIAL IV ONE (07:18)
[2023-05-02] MEDS ORDERED: MIDAZOLAM HCL 2 MG/2 ML INJ ONE (07:19)
[2023-05-02] MEDS ORDERED: ONDANSETRON 4 MG/2 ML VIAL ONE (07:21)
--- NOTE | 2023-05-02 08:23 | P.BOP ---
Preoperative diagnosis: right facial tender mass 3x3cm Postoperative diagnosis: same Primary procedure: Excisional biopsy of right facial tender subq mass 2.1 x 2cm Estimated blood loss: <5cc Specimen: mass Findings: mass Anesthesia: General Complications: None Transferred to: Recovery Room Condition: Good
[2023-05-02] MEDS ORDERED: EPHEDRINE SULF 50 MG/ML VIAL ONE (08:25)
[2023-05-02] MEDS ORDERED: Phenylephrine HCl 10 MG/ML 1 ML VIAL ONE (08:36)
[2023-05-02 09:03] VITALS: O2SAT 99
[2023-05-02 10:18] VITALS: BP 112/60; TEMP 97
--- NOTE | 2023-05-02 19:06 | OP ---
Date of Procedure: 05/02/2023 Surgeon: Juan Dawson MD Diagnosis: Right facial tender subcutaneous mass, 3 x 3 cm. Postoperative Diagnosis: Right facial tender subcutaneous mass, 3 x 3 cm. Procedure: Excisional biopsy of right facial tender subcu mass about 2.1 x 2 cm. Estimated Blood Loss: Less than 5 cc. Specimen: Mass Anesthesia: General plus local. Complications: None. Indication: This is the case of a 72-year-old patient who comes to us with a tender facial mass. Gi stoney pain and discomfort, she wants that excised. It was a little bit bigger when she came to my offi ce, now slightly smaller because the swelling from the inflammatory process is coming down a bit, but the mass is still there. She wants that excised. The benefits, alternatives, and risks of excision were fully explained, which include, but not limited to infection, bleeding, damage to adjacent stru ctures, anesthesia complications, scars, nonhealing wound, MA, and even . She also had a chance of recurrence. She understood, signed a consent. Area of concern was marked by me and the patient in the holding room. Description Of Procedure: Patient was brought to the operating room, placed in supine position. Ane sthesia was done without complication. Right facial area was prepped and draped in usual sterile fas hion. A time-out was called. Local anesthesia was applied followed by a wedge incision of the skin. Incision was carried down to deep subcutaneous tissue where we have this mass that was removed with the help of blunt dissection. The mass was removed in 1 unit. No pus seen. Area was irrigated and then we proceeded to close this with 3-0 chromic, subcutaneous tissue, and 3-0 chromic subcuticular with Steri-Strips on top. Sponge count and instrument counts were correct. Patient tolerated the pr ocedure well. Patient was sent to recovery in stable condition. ARTIS/MODL Voice ID: [id number] Report ID: [id number]
--- NOTE | 2023-05-03 04:34 | DS ---
Date of Discharge: 05/02/2023 Diagnosis: Right facial tender subcu mass. Procedure: Excisional biopsy of right facial tender subcutaneous mass. Disposition: Home. Activity: As tolerated. No heavy lifting. Followup: In my office in 1 week. Call for appointment at [phone]. Plan: Keep area dry for 48 hours and then may shower. Keep Steri-Strips intact. For medications, s ee orders. ARTIS/DANYELL Voice ID: [id number] Report ID: [id number]
== END 2023-05-02 10:00 | disposition home or self-care (01) ==
LOC: OR 06:08
PROVIDERS: ATTEND Surgery
PROC: 0JB10ZZ Excision of Face Subcutaneous Tissue and Fascia, Open Approach (ICD-10-PCS; principal; 2023-05-02 07:30)
DX: L72.0 Epidermal cyst (principal)
CPT/HCPCS: 93005; 85025; 80048; 36415; 88305; 71046; 11443; J2704; J2001; J2250; J3010; J2405; J7120; J0690; 88304; J2371

== ENCOUNTER 2024-01-14 17:28 | Inpatient (IN) | payer MEDICARE ==
[2024-01-14 18:13] LABS: Absolute Lymphocytes (CBC) 2.6 K/uL (0.7-4.9); Absolute Monocytes 0.9 K/uL (0.1-1.3); Absolute Neutrophil 4.2 K/uL (1.8-8.0); Basophils % 0.7 % (0-1.3); Hematocrit 23.2 % (36.0-45.0); Hemoglobin 6.9 g/dL (12.0-15.0); Lymphocytes % 32.5 % (15.3-44.8); MCH 19.3 pg (27.0-35.0); MCHC 29.9 g/dL (32.0-36.0); MCV 64.5 fL (80-100); MPV 7.8 fL (7.6-11.3); Monocytes % 10.7 % (3.3-12.3); Neutrophils % 52.1 % (41.7-73.7); Platelets 330 thou/uL (152-406); RBC Red Blood Cell Count 3.59 M/uL (3.86-4.86); Red Cell Distribution Width 19.6 % (12.1-15.2)
[2024-01-14 18:14] LABS: Absolute Basophils 0.1 K/uL (0-0.5); Absolute Eosinophils 0.3 K/uL (0-0.5)
[2024-01-14 18:30] LABS: Albumin 3.7 g/dL (3.4-5.0); Albumin/Globulin Ratio 0.9 (1.1-1.8); Anion Gap 3.6 mEq/L (5.0-15.0); Bilirubin Total 0.4 mg/dL (0.2-1.0); Potassium 3.6 mEq/L (3.5-5.1); Protein, Total 7.7 g/dL (6.4-8.2)
--- NOTE | 2024-01-14 18:40 | RAD REPORT ---
EXAM DESCRIPTION: RAD - Chest Single View - 01/14/2024 6:10 pm CLINICAL HISTORY: Cough;Dyspnea Chest pain. COMPARISON: Chest Pa And Lat (2 Views) dated 04/30/2023; Chest Pa And Lat (2 Views) dated 12/31/2018; Chest Pa And Lat (2 Views) dated 04/18/2017; CHEST SINGLE VIEW dated 03/14/2012 FINDINGS: Portable technique limits examination quality. Mild interstitial pulmonary edema. The heart is mildly enlarged in size. No displaced fractures. IMPRESSION: Mild CHF.
--- NOTE | 2024-01-14 18:47 | RAD REPORT ---
EXAM DESCRIPTION: CT - Abdomen Pelvis Wo Contrast - 01/14/2024 6:40 pm CLINICAL HISTORY: Abdominal pain. ABD PAIN COMPARISON: Abdomen Pelvis Wo Contrast dated 03/26/2019 TECHNIQUE: CT imaging of the abdomen and pelvis was performed without contrast. Solid organ, bowel a nd vascular assessment is limited due to lack of IV and oral contrast. All CT scans are performed using dose optimization technique as appropriate and may include automated exposure control or mA/KV adjustment according to patient size. FINDINGS: The lower lung hodges are clear.Cholecystectomy clips. The liver, spleen, pancreas, adrenal glands and kidneys are within normal limits for a limited non-co ntrast examination. No bowel obstruction, free air, free fluid or abscess. Mild sigmoid diverticulosis without diverticul itis. The appendix is normal. The osseous structures are within normal limits. IMPRESSION: No acute intra-abdominal or pelvic findings. A limited non-contrast examination was performed as detailed.
--- NOTE | 2024-01-14 19:57 | EDPHYS ---
Physician Documentation [facility] Name: Tuyet Maldonado Age: 73 yrs Sex: Female : 1950 Arrival Date: 01/14/2024 Time: 17:28 Bed 2 Private MD: ED Physician Tj Acosta HPI: 01/13 17:40 This 73 yrs old Black Female presents to ER via Ambulatory with complaints of Shortness kb Of Breath. 18:17 Pt is a 73 year old female who presents for shortness of breath on exertion for 7 days. kb States she believes it is due to anemia. Reports last labs were done 2 months ago and her hgb was 7.4 at that time. Reports chronic anemia with intermittent dark stools, none at this time. Denies any bleeding currently. Reports she has had a cough and congestion. Denies fever. . Historical: - Allergies: 17:39 Iodine; as6 - PMHx: 17:39 heart disease; Lupus; Anemia; as6 - PSHx: 17:39 ear; Cholecystectomy; Total abdominal hysterectomy; knee; ankle; as6 - Immunization history:: Adult Immunizations up to date. - Infectious Disease History:: Denies. - Social history:: Smoking status: Patient denies any tobacco usage or history of. ROS: 18:17 Constitutional: As per HPI kb Exam: 18:17 Constitutional: This is a well developed, well nourished patient who is awake, alert, kb and in no acute distress. Head/Face: Normocephalic, atraumatic. ENT: Moist Mucous membranes Respiratory: Respirations even and unlabored. No increased work of breathing. Talking in full sentences Skin: Warm, dry with normal turgor. Normal color. MS/ Extremity: Pulses equal, no cyanosis. Neurovascular intact. Full, normal range of motion. Neuro: Awake and alert, GCS 15, oriented to person, place, time, and situation. Moves all extremities. Normal gait. 18:17 Cardiovascular: Rate: tachycardic, Rhythm: regular, Heart sounds: murmur, 18:26 Abdomen/GI: Inspection: abdomen appears normal, Bowel sounds: normal, Palpation: soft, kb in all quadrants, mild abdominal tenderness, in the right upper quadrant, 21:47 ECG was reviewed by the Attending Physician. kb Vital Signs: 17:38 BP 120 / 71; Pulse 102; Resp 20 S; Temp 97.8(O); Pulse Ox 98% on R/A; Pain 0/10; as6 18:15 BP 131 / 69; Pulse 89; Resp 16; Pulse Ox 100% on R/A; db 17:38 Pain Scale: Adult as6 MDM: 17:34 Patient medically screened. kb 18:21 Data reviewed: vital signs, nurses notes. kb 19:55 Differential diagnosis: Anemia CHF exacerbation, pneumonia. Consideration of kb Admission/Observation Patient was admitted/placed on observation. Escalation of care including admission/observation considered. Management of patient was discussed with the following: Hospitalist: Dr Light. Counseling: I had a detailed discussion with the patient and/or guardian regarding the historical points, exam findings, and any diagnostic results supporting the discharge/admit diagnosis, lab results, radiology results, the need for further work-up and treatment in the hospital. 01/13 17:40 Order name: CBC with Diff; Complete Time: 20:27 kb 01/13 17:40 Order name: CMP; Complete Time: 18:31 kb 01/13 17:40 Order name: Type And Screen kb 01/13 18:26 Order name: Bb Add On bd 01/13 18:44 Order name: BNP; Complete Time: 21:47 kb 01/13 18:44 Order name: Troponin High Sensitivity; Complete Time: 21:47 kb 01/13 19:23 Order name: Packed RBCs (Additional Unit) EDNJ 01/13 20:23 Order name: CBC Smear Scan; Complete Time: 20:27 EDNJ 01/13 20:45 Order name: ABO/RH no charge; Complete Time: 21:07 EDMS 01/13 21:10 Order name: CBC with Automated Diff EDMS 01/13 21:10 Order name: CBC with Automated Diff EDMS 01/13 21:10 Order name: Comprehensive Metabolic Panel EDNJ 01/13 21:10 Order name: Comprehensive Metabolic Panel EDNJ 01/13 21:10 Order name: Lipid Profile EDMS 01/13 21:10 Order name: Lipid Profile EDNJ 01/13 21:12 Order name: Magnesium EDMS 01/13 21:12 Order name: Magnesium EDNJ 01/13 21:12 Order name: Magnesium EDNJ 01/13 21:12 Order name: Gastric Occult Blood EDNJ 01/13 21:25 Order name: Magnesium; Complete Time: 21:47 EDMS 01/13 21:25 Order name: Thyroid Stimulating Hormone; Complete Time: 21:47 EDMS 01/13 17:40 Order name: Chest Single View XRAY; Complete Time: 18:44 kb 01/13 18:26 Order name: CT Abd/Pelvis - Without Contrast; Complete Time: 18:48 kb 01/13 21:12 Order name: Echo with Doppler EDNJ 01/13 20:20 Order name: EKG; Complete Time: 20:21 kb 01/13 21:10 Order name: CONS Physician Consult EDNJ 01/13 17:40 Order name: IV Start; Complete Time: 18:10 kb 01/13 20:20 Order name: EKG - Nurse/Tech; Complete Time: 21:23 kb EC:47 Rate is 86 beats/min. Rhythm is regular. QRS [place] is Normal. MN interval is normal at kb 142 msec. QRS interval is normal at 78 msec. QT interval is normal at 461 msec. Administered Medications: No medications were administered Disposition Summary: 01/14/24 19:56 Hospitalization Ordered Notes: Hospitalization Status: Observation kb Provider: Darius Light [facility] Condition: Stable kb Problem: new kb Symptoms: are unchanged kb Bed/Room Type: Standard Room Assignment: 204(01/14/24 21:51) kl Diagnosis - Anemia, unspecified kb - Acute pulmonary edema kb Forms: - Medication Reconciliation Form kb - SBAR form kb - Leadership Thank You Letter kb Addendum: 01/18/2024 13:44 I was immediately available for consultation during this patient's visit. I did not e c2 personally see the patient or discuss the patient with the DANICA. . Signatures: Dispatcher [employer] [facility] Gabriella Esposito, BAUDILIO KO-Pati Prajapati RN RN kl Slawson, Ashby, RN RN as6 Tj Acosta MD MD ec2 Corrections: (The following items were deleted from the chart) 01/13 17:41 17:41 Chest Single View+RAD.RAD.BRZ ordered. [facility] 18:24 18:17 Pt is a 73 year old female who presents for shortness of breath for 7 days. kb States she believes it is due to anemia. Reports last labs were done 2 months ago and her hgb was 7.4 at that time. Reports chronic anemia with intermittent dark stools, none at this time. Denies any bleeding currently. Reports she has had a cough and congestion. Denies fever. . kb 18:26 18:26 Abdomen Pelvis Wo Con+CT.RAD.BRZ ordered. EDMS EDMS 18:27 18:17 Constitutional: This is a well developed, well nourished patient who is awake, kb alert, and in no acute distress. Head/Face: Normocephalic, atraumatic. ENT: Moist Mucous membranes Respiratory: Respirations even and unlabored. No increased work of breathing. Talking in full sentences Abdomen/GI: Soft, non-tender. No distention Skin: Warm, dry with normal turgor. Normal color. MS/ Extremity: Pulses equal, no cyanosis. Neurovascular intact. Full, normal range of motion. Neuro: Awake and alert, GCS 15, oriented to person, place, time, and situation. Moves all extremities. Normal gait. kb 21:24 21:12 Thyroid Stimulating Hormone ordered. EDMS EDMS 21:24 21:12 Magnesium ordered. EDMS EDMS 21:51 19:56 kb
--- NOTE | 2024-01-14 19:57 | ER ---
Nurse's Notes [facility] Name: Tuyet Maldonado Age: 73 yrs Sex: Female : 1950 Arrival Date: 01/14/2024 Time: 17:28 Bed 2 Private MD: Diagnosis: Anemia, unspecified;Acute pulmonary edema Presentation: 01/13 17:38 Chief complaint: Patient states: cough, shortness of breath. Coronavirus screen: At as6 this time, the client does not indicate any symptoms associated with coronavirus-19. Ebola Screen: No symptoms or risks identified at this time. Initial Sepsis Screen: Does the patient meet any 2 criteria? No. Patient's initial sepsis screen is negative. Does the patient have a suspected source of infection? No. Patient's initial sepsis screen is negative. Risk Assessment: Do you want to hurt yourself or someone else? Patient reports no desire to harm self or others. Onset of symptoms was January 07, 2024. 17:38 Acuity: ADOLFO 2 as6 17:38 Method Of Arrival: Ambulatory as6 Historical: - Allergies: 17:39 Iodine; as6 - PMHx: 17:39 heart disease; Lupus; Anemia; as6 - PSHx: 17:39 ear; Cholecystectomy; Total abdominal hysterectomy; knee; ankle; as6 - Immunization history:: Adult Immunizations up to date. - Infectious Disease History:: Denies. - Social history:: Smoking status: Patient denies any tobacco usage or history of. Screenin:05 [facility] ED Fall Risk Assessment (Adult) History of falling in the last 3 months, db including since admission No falls in past 3 months (0 pts) Confusion or Disorientation No (0 pts) Intoxicated or Sedated No (0 pts) Impaired Gait No (0 pts) Mobility Assist Device Used No (0 pt) Altered Elimination No (0 pt) Score/Fall Risk Level 0 - 2 = Low Risk Oriented to surroundings, Maintained a safe environment. Abuse screen: Denies threats or abuse. Denies injuries from another. Nutritional screening: No deficits noted. Tuberculosis screening: No symptoms or risk factors identified. Assessment: 18:05 Reassessment: Patient appears in no apparent distress at this time. Patient and/or db family updated on plan of care and expected duration. Pain level reassessed. Patient is alert, oriented x 3, equal unlabored respirations, skin warm/dry/pink. General: Appears in no apparent distress. comfortable, Behavior is calm, cooperative. Pain: Denies pain. Neuro: Level of Consciousness is awake, alert, obeys commands, Oriented to person, place, time, situation. Cardiovascular: Reports shortness of breath, Rhythm is regular. Respiratory: Airway is patent Respiratory effort is even, unlabored, Respiratory pattern is regular, symmetrical, Breath sounds are clear. 19:15 Reassessment: Patient appears in no apparent distress at this time. Patient and/or km8 family updated on plan of care and expected duration. Pain level reassessed. Patient is alert, oriented x 3, equal unlabored respirations, skin warm/dry/pink. General: Appears in no apparent distress. comfortable, Behavior is calm, cooperative, appropriate for age. Pain: Denies pain. Neuro: Level of Consciousness is awake, alert, obeys commands, Oriented to person, place, time, situation. Cardiovascular: Denies chest pain, Patient's skin is warm and dry. Respiratory: Airway is patent Respiratory effort is even, unlabored, Respiratory pattern is regular, symmetrical. GI: No signs and/or symptoms were reported involving the gastrointestinal system. : No signs and/or symptoms were reported regarding the genitourinary system. EENT: No signs and/or symptoms were reported regarding the EENT system. Derm: No signs and/or symptoms reported regarding the dermatologic system. Skin is intact, is healthy with good turgor, Skin is dry, Skin is pink, warm \T\ dry. normal, Skin temperature is warm. Musculoskeletal: No signs and/or symptoms reported regarding the musculoskeletal system. Circulation, motion, and sensation intact. Range of motion: intact in all extremities. 20:00 Reassessment: Patient appears in no apparent distress at this time. No changes from km8 previously documented assessment. Patient and/or family updated on plan of care and expected duration. Pain level reassessed. Patient is alert, oriented x 3, equal unlabored respirations, skin warm/dry/pink. 21:00 Reassessment: Patient appears in no apparent distress at this time. No changes from km8 previously documented assessment. Patient and/or family updated on plan of care and expected duration. Pain level reassessed. Patient is alert, oriented x 3, equal unlabored respirations, skin warm/dry/pink. blood transfusion started at this time; see separate transfusion record for vital signs. 22:00 Reassessment: Patient appears in no apparent distress at this time. No changes from [facility] previously documented assessment. Patient and/or family updated on plan of care and expected duration. Pain level reassessed. Patient is alert, oriented x 3, equal unlabored respirations, skin warm/dry/pink. 23:00 Reassessment: Patient appears in no apparent distress at this time. No changes from [facility] previously documented assessment. Patient and/or family updated on plan of care and expected duration. Pain level reassessed. Patient is alert, oriented x 3, equal unlabored respirations, skin warm/dry/pink. Vital Signs: 17:38 BP 120 / 71; Pulse 102; Resp 20 S; Temp 97.8(O); Pulse Ox 98% on R/A; Pain 0/10; as6 18:15 BP 131 / 69; Pulse 89; Resp 16; Pulse Ox 100% on R/A; db 17:38 Pain Scale: Adult as6 ED Course: 17:30 Patient arrived in ED. mr 17:34 Adeel Espositoistin, ACT T[facility]OR-C is [facility]. kb 17:34 Tj Acosta MD is Attending Physician. kb 17:38 Arm band placed on. as6 17:39 Triage completed. as6 17:45 Isamar Roberson, RN is Primary Nurse. db 18:03 Warm blanket given. jg11 18:03 Client placed on continuous cardiac and pulse oximetry monitoring. NIBP monitoring jg11 applied. 18:04 Initial lab(s) drawn, by me, sent to lab. Inserted saline lock: 20 gauge in left db antecubital area, using aseptic technique. Blood collected. 18:05 Patient has correct armband on for positive identification. Bed in low position. Call db light in reach. Side rails up X 1. Provided Education on: LABS . 18:10 No provider procedures requiring assistance completed. db 18:12 Chest Single View XRAY In Process Unspecified. EDMS 18:42 CT Abd/Pelvis - Without Contrast In Process Unspecified. EDMS 19:20 Consent for blood and/or blood product transfusion explained by staff, explained by [facility] physician, signed by patient. 19:20 Provided Education on: Blood Transfusion. [facility] 19:26 Melvina Sparks, RN is Primary Nurse. km8 19:56 Darius Light MD is Hospitalizing Provider. kb 21:52 Patient admitted, IV remains in place. km8 22:33 Inserted saline lock: 22 gauge in right forearm, using aseptic technique. km8 Administered Medications: No medications were administered Medication: 18:05 VIS not applicable for this client. db Outcome: 19:56 Decision to Hospitalize by Provider. kb 23:30 Admitted to Med/surg accompanied by tech, via wheelchair, room 204, with chart, km8 23:30 Condition: stable 23:30 Instructed on follow up and referral plans. Demonstrated understanding of instructions, km8 23:44 Patient left the ED. km8 Signatures: Dispatcher [employer] EDMS Gabriella Esposito, ACT TUTOR-C ACT TUTOR-Ckb Nilam Holt, Reg Reg Aneudy Cortes, RN RN as6 Isamar Roberson RN RN Melvina Hobbs, RN RN km8 Linwood Aggarwal jg11
[2024-01-14 20:22] LABS: Anisocytosis 1+; Blood Morphology Comment NOTED (NOT SEEN); Platelet Estimate ADEQ; Poikilocytosis 2+; White Blood Cell Scan OK (OK)
[2024-01-14 20:44] LABS: Troponin High Sensitivity 7.2 pg/mL (<58.9)
[2024-01-14] MEDS ORDERED: NA CHLORIDE 0.9% 250 ML ONE (20:54)
[2024-01-14] MEDS ORDERED: ONDANSETRON 4 MG/2 ML VIAL IV PRN (21:05)
[2024-01-14] MEDS ORDERED: MORPHINE 2 MG/ML SYR IV PRN (21:05)
[2024-01-14] MEDS ORDERED: ALBUTEROL 2.5 MG/3 ML NEB SOL NEB PRN (21:05)
[2024-01-14] MEDS ORDERED: HYDRALAZINE HCL 20 MG/ML VIAL IV PRN (21:10)
--- NOTE | 2024-01-14 21:15 | P.HP ---
Certification for Inpatient Patient admitted to: Observation With expected LOS: <2 Midnights Patient will require the following post-hospital care: None Practitioner: I am a practitioner with admitting privileges, knowledge of patient current condition, hospital course, and medical plan of care. Services: Services provided to patient in accordance with Admission requirements found in Title 42 Section 412.3 of the Code of Federal Regulations Patient History Date of Service: 01/14/24 Reason for admission: Shortness of breath History of Present Illness: 74-year-old female with past medical history of HTN/HLD/chronic anemia status post previous EGD and colonoscopy with findings of only Blankenship's esophagitis over 5 years ago, previous chronic anemia presented because of a exertional shortness of breath. Denies any chest pain or palpitation. Denies any nausea vomiting hematemesis or hematochezia. Admits to some melena stools intermittently but none over the last 1 month. On arrival in the ED vital signs were stable mildly elevated blood pressure in the 140s over 70s. Nontachycardic. Chest x-ray shows mild pulmonary edema. Laboratory studies show hemoglobin of 6.9. BMP was unremarkable. proBNP was normal. She has been admitted for symptomatic anemia. Allergies iodine [Iodine] Allergy (Severe, Verified 05/02/23 06:43) Shortness of breath Home Medications: Fluticasone/Salmeterol [Advair 100/50 Diskus*] 1 puff IH BID 03/15/12 Acetaminophen with Codeine [Tylenol with-Codeine #3 Tablet] 1 tab PO DAILY PRN 04/30/23 Aspirin [Aspirin Regimen] 1 tab PO DAILY 04/30/23 Clopidogrel Bisulfate [Plavix] 75 mg PO DAILY 04/30/23 Duloxetine HCl 30 mg PO DAILY 04/30/23 Famotidine 20 mg PO DAILY 04/30/23 Folic Acid 5 tab PO DAILY 04/30/23 Furosemide [Lasix] 20 mg PO DAILY 04/30/23 Isosorbide Dinitrate 30 mg PO BEDTIME 04/30/23 Levothyroxine [Synthroid] 125 mcg PO DAILY 04/30/23 Losartan Potassium 100 mg PO DAILY 04/30/23 Omeprazole [Prilosec] 40 mg PO BID 04/30/23 Potassium Bicarbonate/Cit AC [Effer-K 20 Meq Tablet Eff] 20 meq PO DAILY 04/30/23 Pravastatin Sodium 40 mg PO DAILY 04/30/23 Prednisone [Joi] 5 mg PO DAILY 04/30/23 clonazePAM [Clonazepam] 0.5 mg PO DAILY PRN 04/30/23 oxyBUTYnin chloride [Ditropan Xl] 5 mg PO DAILY 04/30/23 - Past Medical/Surgical History Has patient received pneumonia vaccine in the past: No Diabetic: No -: Rheumatoid arthritis -: Chronic anemia -: Hypertension -: Total abdominal hysterectomy - Social History Smoking Status: Never smoker Smoking therapy provided: No Patient receptive to therapy: No Alcohol use: Yes CD- Drugs: No Caffeine use: Yes Place of Residence: Home Review of Systems 10-point ROS is otherwise unremarkable Physical Examination - Physical Exam General: Alert, In no apparent distress, Oriented x3 HEENT: Atraumatic, Normocephalic, PERRLA Neck: Supple, 2+ carotid pulse no bruit Respiratory: Clear to auscultation bilaterally, Normal air movement Cardiovascular: Normal pulses, Regular rate/rhythm, Normal S1 S2 Gastrointestinal: Normal bowel sounds, Soft and benign, Non-distended Musculoskeletal: No clubbing, No swelling Integumentary: No rashes, No breakdown, No significant lesion Neurological: Normal speech, Normal strength at 5/5 x4 extr, Normal tone - Studies Laboratory Data (last 24 hrs) 01/14/24 01/14/24 18:04 18:04 WBC 8.10 Hgb 6.9 L Hct 23.2 L Plt Count 330 Sodium 134 L Potassium 3.6 BUN 15 Creatinine 1.03 H Glucose 151 H Total Bilirubin 0.4 AST 14 L ALT 19 Alkaline Phosphatase 112 Assessment and Plan - Plan Impression Symptomatic anemia Mild acute pulmonary edema Presence of sigmoid diverticulosis History of chronic anemiaof unclear etiology Hypertension HLD Plan Will admit patient to observation PRBC 2 units today Dose Lasix given mild pulmonary edema proBNP within normal range noted Continue Lasix for now twice daily Obtain echocardiogram Obtain stool for occult blood Will consult GI in case of positive stool for occult blood for possible EGD and colonoscopy given presence of sigmoid diverticulosis on CT scan as well as personal history of Blankenship's esophagitis on previous EGD Monitor H&H SCDs for DVT prophylaxis since unclear ongoing anemia Disposition possible hospital stay for 24 to 48 hours Full code Total signs spent review of record discussion with patient and evaluation greater than 65 minutes - Advance Directives Does patient have a Living Will: No Does patient have a Durable POA for Healthcare: No Time Spent Managing Pts Care (In Minutes): 65
[2024-01-14] MEDS ORDERED: SODIUM CHLORIDE 0.9% 10ML INJ IV PRN (21:32)
[2024-01-14 21:41] LABS: Magnesium 2.5 mg/dL (1.6-2.4); Thyroid Stimulating Hormone 3.15 uIU/mL (0.358-3.740)
[2024-01-14] MEDS ORDERED: NA CHLORIDE 0.9% 250 ML IV SCH (22:00)
[2024-01-15] MEDS: ACETAMINOPHEN 325 MG TABLET PO PRN (00:33)
[2024-01-15] MEDS: FUROSEMIDE 40 MG/4 ML VIAL ONE (00:43)
[2024-01-15] MEDS: HYDROCORTISONE SUC 100 MG INJ ONE (00:45)
[2024-01-15] MEDS: HYDROCORTISONE SUC 100 MG INJ IV ONE (00:47)
[2024-01-15] MEDS: FUROSEMIDE 40 MG/4 ML VIAL IV ONE (00:47)
[2024-01-15 00:48] VITALS: O2SAT 100
[2024-01-15 06:08] LABS: Absolute Eosinophils 0.1 K/uL (0-0.5); Absolute Lymphocytes (CBC) 1.2 K/uL (0.7-4.9); Absolute Monocytes 0.6 K/uL (0.1-1.3); Absolute Neutrophil 7.5 K/uL (1.8-8.0); Basophils % 0.5 % (0-1.3); Eosinophils % 0.8 % (0-4.4); Hemoglobin 8.6 g/dL (12.0-15.0); MCH 20.9 pg (27.0-35.0); MCHC 30.6 g/dL (32.0-36.0); MCV 68.1 fL (80-100); MPV 8.4 fL (7.6-11.3); Monocytes % 6.1 % (3.3-12.3); Neutrophils % 79.6 % (41.7-73.7); Platelets 282 thou/uL (152-406); RBC Red Blood Cell Count 4.11 M/uL (3.86-4.86); Red Cell Distribution Width 22.1 % (12.1-15.2)
[2024-01-15 06:31] LABS: Albumin 3.5 g/dL (3.4-5.0); Albumin/Globulin Ratio 0.9 (1.1-1.8); Anion Gap 4.9 mEq/L (5.0-15.0); Bilirubin Total 0.5 mg/dL (0.2-1.0); Globulin 3.8 g/dL (2.3-3.5); Potassium 3.9 mEq/L (3.5-5.1); Protein, Total 7.3 g/dL (6.4-8.2)
[2024-01-15 07:21] LABS: Ferritin 4.4 ng/mL (8-388)
[2024-01-15] MEDS: PANTOPRAZOLE 40 MG INJ IVP SCH (08:44)
[2024-01-15] MEDS: ASPIRIN EC 81 MG TAB PO SCH (08:45)
[2024-01-15] MEDS: FUROSEMIDE 40 MG TABLET PO SCH (08:45)
[2024-01-15] MEDS: LEVOTHYROXINE SOD 0.125 MG TAB PO SCH (08:50)
[2024-01-15 08:56] LABS: Anisocytosis 2+; Blood Morphology Comment NOTED (NOT SEEN); Hypochromasia 1+; Microcytosis 1+; Platelet Estimate ADEQ; White Blood Cell Scan OK (OK)
[2024-01-15] MEDS ORDERED: FUROSEMIDE 40 MG TABLET PO SCH (09:00)
[2024-01-15] MEDS ORDERED: MORPHINE 4 MG/ML SYR IV PRN (09:59)
[2024-01-15] MEDS: ALBUTEROL 2.5 MG/3 ML NEB SOL NEB ONE (10:30)
[2024-01-15] MEDS: METHYLPREDNISOLONE 40 MG INJ IV SCH (10:51)
--- NOTE | 2024-01-15 11:44 | P.PN ---
Date of Service: 01/15/24 Subjective: Still with dyspnea Denies melena No acute events overnight ROS: 10 point ROS as noted above, otherwise negative Physical exam GEN: Alert, oriented, NAD HEENT: Normal conjunctiva, sclera anicteric CV: Regular rate and rhythm, no edema Pulm: Nonlabored respirations on room air ABD: Soft, nontender, nondistended MSK: No joint tenderness Integumentary: No rashes Neuro: Normal speech, normal affect Vitals reviewed Assessment: Symptomatic iron deficiency anemia Asthma with exacerbation Mild pulmonary edema Hypertension Hyperlipidemia Plan: Symptomatic iron deficiency anemia Patient reports approximately 1 month ago she had 1 week of melena which is since resolved Last EGD 2021 showed Blankenship's esophagus Continue twice daily PPI as prescribed outpatient Given 2 unit PRBC, hemoglobin up to 8.6 Recommend outpatient follow-up with GI for repeat EGD Patient on iron supplementation at home-continue Asthma with exacerbation Has been feeling increasingly shortness of breath last 1 week Expiratory wheezing on exam Will give nebulizer treatment, started on steroids Mild pulmonary edema No peripheral edema, no history of CHF BNP within normal range Takes Lasix at home, continue Hypertension Hyperlipidemia Continue home medications as prescribed DVT PPX: SCD Code status: Full
--- NOTE | 2024-01-15 14:00 | EKG ---
Test Date: 2024-01-14 Test Time: 21:19:05 Phlebotomy Director: GERSON MEASUREMENT RESULTS: Intervals: Rate: 86 IA: 142 QRSD: 78 QT: 386 QTc: 461 [place]: P: 58 IA: 142 QRS: 36 T: 56 INTERPRETIVE STATEMENTS: Normal sinus rhythm Normal ECG Compared to ECG 04/30/2023 15:20:27 No significant changes Electronically Signed On 01-15-24 13:58:17 CDT by Boo Lind
[2024-01-15] MEDS: ISOSORBIDE DINIT 5 MG TAB PO SCH (20:15)
[2024-01-15] MEDS: ALBUTEROL 2.5 MG/3 ML NEB SOL NEB PRN (21:36)
[2024-01-15 22:25] VITALS: BMI 43.9
[2024-01-16 04:01] LABS: Hematocrit 26.2 % (36.0-45.0); Hemoglobin 8.2 g/dL (12.0-15.0); MCH 21.3 pg (27.0-35.0); MCHC 31.5 g/dL (32.0-36.0); MCV 67.7 fL (80-100); MPV 8.3 fL (7.6-11.3); Platelets 297 thou/uL (152-406); RBC Red Blood Cell Count 3.87 M/uL (3.86-4.86); Red Cell Distribution Width 22.1 % (12.1-15.2)
[2024-01-16 04:29] LABS: Anion Gap 9.3 mEq/L (5.0-15.0); Potassium 3.3 mEq/L (3.5-5.1)
[2024-01-16 08:30] VITALS: BP 133/67; TEMP 97
[2024-01-16] MEDS: DULOXETINE 30 MG CAP PO SCH (08:49)
[2024-01-16] MEDS: OXYBUTYNIN ER 5 MG TAB PO SCH (08:50)
[2024-01-16] MEDS: FOLIC ACID 1 MG TABLET PO SCH (08:50)
[2024-01-16] MEDS ORDERED: LEVOTHYROXINE SOD 0.1 MG TAB PO SCH (09:00)
--- NOTE | 2024-01-16 11:41 | P.DS ---
Admission Date: 01/15/24 Discharge Date: 01/16/24 Disposition: ROUTINE DISCHARGE Discharge Condition: GOOD Reason for Admission: Shortness of breath Brief History of Present Illness: 74-year-old female with past medical history of HTN/HLD/chronic anemia status post previous EGD and colonoscopy with findings of only Blankenship's esophagitis over 5 years ago, previous chronic anemia presented because of a exertional shortness of breath. Denies any chest pain or palpitation. Denies any nausea vomiting hematemesis or hematochezia. Admits to some melena stools intermittently but none over the last 1 month. On arrival in the ED vital signs were stable mildly elevated blood pressure in the 140s over 70s. Nontachycardic. Chest x-ray shows mild pulmonary edema. Laboratory studies show hemoglobin of 6.9. BMP was unremarkable. proBNP was normal. She has been admitted for symptomatic anemia. Hospital Course: Assessment: Symptomatic iron deficiency anemia Asthma with exacerbation Mild pulmonary edema Hypertension Hyperlipidemia Patient was admitted to the hospital initially for suspected symptomatic anemia, her hemoglobin on admission was 6.9. She was given 2 units PRBC and repeat hemoglobin was 8.6 and 8.2 today. She informed us that approximately 1 month ago she had melena for approximately 1 week which is since resolved. Last EGD performed in 2021 per patient showed Blankenship's esophagus, she takes omeprazole twice daily at home for this. She has had no further melena, hematemesis or hematochezia. Her iron level was 22, transferrin saturation percentage was 4.4. She does take p.o. iron at home which was instructed to continue, she plans on following up closely with her GI doctor for repeat EGD as an outpatient. After receiving the blood transfusion she still is feeling a bit short of breath, on exam she had expiratory wheezing and she has a known history of asthma. She was treated for an asthma exacerbation with Solu-Medrol, nebulizer treatments and had significant improvement overnight. She is breathing much easier today and stable for discharge. Please follow-up with your primary care doctor in 1 to 2 weeks Please also follow-up with a GI doctor and have repeat endoscopy performed Continue taking your iron supplement Prescription for prednisone 10 mg twice daily for 5 days was sent to your pharmacy Continue using your nebulizer machine as needed at home Vital Signs/Physical Exam: Temp Pulse Resp BP Pulse Ox 97.0 F 82 16 133/67 94 05/08/24 08:00 01/16/24 08:49 01/16/24 08:00 01/16/24 08:49 01/16/24 08:00 General: Alert, In no apparent distress, Oriented x3 HEENT: Atraumatic, PERRLA Neck: Supple, JVD not distended Respiratory: Clear to auscultation bilaterally, Normal air movement Cardiovascular: Regular rate/rhythm, Normal S1 S2 Gastrointestinal: Normal bowel sounds, No tenderness Musculoskeletal: No tenderness Integumentary: No rashes Neurological: Normal speech, Normal tone, Normal affect Laboratory Data at Discharge: WBC 9.00 thou/uL (4.3-10.9) 01/16/24 02:49 Hgb 8.2 g/dL (12.0-15.0) L 01/16/24 02:49 Hct 26.2 % (36.0-45.0) L 01/16/24 02:49 Plt Count 297 thou/uL (152-406) 01/16/24 02:49 Sodium 133 mEq/L (136-145) L 01/16/24 02:49 Potassium 3.3 mEq/L (3.5-5.1) L D 01/16/24 02:49 BUN 16 mg/dL (7-18) 01/16/24 02:49 Creatinine 1.05 mg/dL (0.55-1.02) H 01/16/24 02:49 Glucose 274 mg/dL (74-106) H 01/16/24 02:49 Magnesium 2.4 mg/dL (1.6-2.4) 01/16/24 02:49 Total Bilirubin 0.5 mg/dL (0.2-1.0) 01/15/24 05:37 AST 10 U/L (15-37) L 01/15/24 05:37 ALT 17 U/L (13-56) 01/15/24 05:37 Alkaline Phosphatase 101 U/L (45-117) 01/15/24 05:37 Triglycerides 51 mg/dL (<150) 01/15/24 05:37 Cholesterol 148 mg/dL (<200) 01/15/24 05:37 HDL Cholesterol 70 mg/dL (40-60) H 01/15/24 05:37 Cholesterol/HDL Ratio 2.11 01/15/24 05:37 Home Medications: Fluticasone/Salmeterol [Advair 100/50 Diskus*] 1 puff IH BID 03/15/12 Acetaminophen with Codeine [Tylenol with-Codeine #3 Tablet] 1.2 tab PO DAILY PRN 04/30/23 Aspirin [Aspirin Regimen] 1 tab PO DAILY 04/30/23 Clopidogrel Bisulfate [Plavix] 75 mg PO DAILY 04/30/23 Duloxetine HCl 30 mg PO DAILY 04/30/23 Famotidine 20 mg PO DAILY 04/30/23 Folic Acid 5 tab PO DAILY 04/30/23 Furosemide [Lasix] 20 mg PO DAILY 04/30/23 Isosorbide Dinitrate 30 mg PO BEDTIME 04/30/23 Omeprazole [Prilosec] 40 mg PO BID 04/30/23 Potassium Bicarbonate/Cit AC [Effer-K 20 Meq Tablet Eff] 20 meq PO DAILY 04/30/23 Pravastatin Sodium 40 mg PO DAILY 04/30/23 clonazePAM [Clonazepam] 0.5 mg PO DAILY PRN 04/30/23 oxyBUTYnin chloride [Ditropan Xl] 5 mg PO DAILY 04/30/23 Duloxetine HCl 60 mg PO BEDTIME 01/15/24 Fluticasone Propion/Salmeterol [Wixela 500-50 Inhub] 01/15/24 Levothyroxine Sodium 100 mcg PO DAILY 01/15/24 predniSONE [Deltasone*] 10 mg PO BID 5 Days #10 tab 01/16/24 New Medications: predniSONE [Deltasone*] 10 mg PO BID 5 Days #10 tab Physician Discharge Instructions: Patient was admitted to the hospital initially for suspected symptomatic anemia, her hemoglobin on admission was 6.9. She was given 2 units PRBC and repeat hemoglobin was 8.6 and 8.2 today. She informed us that approximately 1 month ago she had melena for approximately 1 week which is since resolved. Last EGD performed in 2021 per patient showed Blankenship's esophagus, she takes omeprazole twice daily at home for this. She has had no further melena, hematemesis or hematochezia. Her iron level was 22, transferrin saturation percentage was 4.4. She does take p.o. iron at home which was instructed to continue, she plans on following up closely with her GI doctor for repeat EGD as an outpatient. After receiving the blood transfusion she still is feeling a bit short of breath, on exam she had expiratory wheezing and she has a known history of asthma. She was treated for an asthma exacerbation with Solu-Medrol, nebulizer treatments and had significant improvement overnight. She is breathing much easier today and stable for discharge. Please follow-up with your primary care doctor in 1 to 2 weeks Please also follow-up with a GI doctor and have repeat endoscopy performed Continue taking your iron supplement Prescription for prednisone 10 mg twice daily for 5 days was sent to your pharmacy Continue using your nebulizer machine as needed at home Diet: AHA Activity: Ad william Followup: Main Mcnally MD [ACTIVE - CAN ADMIT] - 1 Week GENNY FORD [Primary Care Provider] - 1-2 Weeks Time spent managing pt's care (in minutes): 35
== END 2024-01-16 09:22 | disposition home or self-care (01) | DRG 811 ==
LOC: ER 17:28 → ERHOLD 21:05 → 2ND 22:41 → OBSVTOIN 01-15 17:41
PROVIDERS: ADMIT Internal Medicine; ATTEND Hospitalist
PROC: 30233N1 Transfusion of Nonautologous Red Blood Cells into Peripheral Vein, Percutaneous Approach (ICD-10-PCS; principal; 2024-01-14)
DX: D50.9 Iron deficiency anemia, unspecified (principal); J81.0 Acute pulmonary edema; J45.901 Unspecified asthma with (acute) exacerbation; I10 Essential (primary) hypertension; E78.5 Hyperlipidemia, unspecified; K57.30 Diverticulosis of large intestine without perforation or abscess without bleeding; Z79.82 Long term (current) use of aspirin; Z79.52 Long term (current) use of systemic steroids; Z79.02 Long term (current) use of antithrombotics/antiplatelets; Z90.49 Acquired absence of other specified parts of digestive tract; Z79.890 Hormone replacement therapy; Z79.899 Other long term (current) drug therapy; Z91.048 Other nonmedicinal substance allergy status; Z90.710 Acquired absence of both cervix and uterus
CPT/HCPCS: 36415; 71045; 74176; 80048; 80053; 80061; 82728; 83540; 83735; 83880; 84443; 84466; 84484; 85025; 85027; 86850; 86900; 86901; 86920; 93005; 94640; 99285; C9113; G0378; J1720; J1940; J2920; J7050; J7613; P9016